=== PATIENT | female | born 1945 | race Caucasian/White ===

== ENCOUNTER 2018-08-25 06:48 | Outpatient (CLI) | payer MEDICARE | END 2018-08-25 23:59 | disposition home or self-care (01) | LOC: CFH 06:48 | PROVIDERS: ATTEND Nurse Practitioner | DX: R20.9 Unspecified disturbances of skin sensation (principal); Z82.49 Family history of ischemic heart disease and other diseases of the circulatory system | CPT/HCPCS: 76706 ==

== ENCOUNTER 2018-09-19 07:35 | Outpatient (CLI) | payer MEDICARE | END 2018-09-19 23:59 | disposition home or self-care (01) | LOC: CFH 07:35 | PROVIDERS: ATTEND Family Medicine | DX: N63.22 Unspecified lump in the left breast, upper inner quadrant (principal) | CPT/HCPCS: 76641; 77065; G0279; 77063 ==

== ENCOUNTER 2019-02-01 18:19 | Observation (INO) | payer MEDICARE ==
[~2019-02-01] VITALS: Ht 170.2 cm; Wt 85.3 kg
[2019-02-02 06:43] VITALS: BP 131/73
== END 2019-02-02 12:04 | disposition home or self-care (01) ==
LOC: ED 20:30 → INTOOBSV 20:35 → EDIP 20:35 → 5SO 21:11 → DCLOUNGE 02-02 11:53
PROVIDERS: ADMIT Family Medicine; ATTEND Family Medicine
DX: I48.92 Unspecified atrial flutter (principal); N17.0 Acute kidney failure with tubular necrosis; D68.59 Other primary thrombophilia; E03.9 Hypothyroidism, unspecified; E78.5 Hyperlipidemia, unspecified; G47.00 Insomnia, unspecified; F10.10 Alcohol abuse, uncomplicated; R79.89 Other specified abnormal findings of blood chemistry; Z79.01 Long term (current) use of anticoagulants; Z87.891 Personal history of nicotine dependence; Z66 Do not resuscitate; Z88.2 Allergy status to sulfonamides; Z91.010 Allergy to peanuts; Z79.82 Long term (current) use of aspirin
CPT/HCPCS: 36415; 71045; 80053; 83735; 83880; 84100; 84443; 84484; 85025; 85610; 92960; 93005; 96361; 96374; 99291; G0378; J7030

== ENCOUNTER 2019-05-07 07:42 | Outpatient (CLI) | payer MEDICARE ==
[~2019-05-07 07:42] MED LIST: ASCO500T8 PO; ASPI-515 PO; CALC-55 PO; CALC200T3 PO; GLUC1CAP13 PO; LEVO25TA4 PO; MULT-516 PO; OMEG1CAP24 PO; PRAV20TA2 PO; RIVA10TA2 PO
== END 2019-05-07 23:59 | disposition home or self-care (01) ==
LOC: CFH 07:42
PROVIDERS: ATTEND Internal Medicine Cardiovascular Disease
DX: I08.3 Combined rheumatic disorders of mitral, aortic and tricuspid valves (principal); I21.19 ST elevation (STEMI) myocardial infarction involving other coronary artery of inferior wall; I21.29 ST elevation (STEMI) myocardial infarction involving other sites; E78.5 Hyperlipidemia, unspecified; Z82.3 Family history of stroke; Z88.2 Allergy status to sulfonamides; Z91.010 Allergy to peanuts; Z82.49 Family history of ischemic heart disease and other diseases of the circulatory system
CPT/HCPCS: 78452; 93017; 93306; A9502

== ENCOUNTER 2019-05-24 07:56 | Day surgery (SDC) | payer MEDICARE ==
[~2019-05-24] VITALS: Ht 170.2 cm; Wt 87.0 kg
[2019-05-24] MEDS ORDERED: DIPHENHYDRAMINE 50 MG/ML, 1ML IVPush ONE (08:30)
[2019-05-24] MEDS ORDERED: POLY17PO5 PO (08:34)
[2019-05-24] MEDS ORDERED: LORA-445 PO (08:34)
[2019-05-24] MEDS ORDERED: FURO-93 PO (08:34)
[2019-05-24] MEDS ORDERED: PLEASE ENTER HEIGHT AND WEIGHT MC SCH (09:00)
[2019-05-24] MEDS ORDERED: DIPHENHYDRAMINE 50 MG/ML, 1ML ONE (09:02)
[2019-05-24] MEDS ORDERED: FENTANYL PF 100 MCG/2ML ONE (09:41)
[2019-05-24] MEDS ORDERED: MIDAZOLAM 1 MG/ML, 2ML ONE ×2 (09:41→10:33)
[2019-05-24] MEDS ORDERED: VERAPAMIL 2.5 MG/ML, 2ML ONE (09:42)
[2019-05-24] MEDS ORDERED: HEPARIN 1,000 UNITS/ML, 10ML ONE (09:42)
[2019-05-24] MEDS ORDERED: LIDOCAINE-MPF 1%, 5ML ONE (09:42)
[2019-05-24] MEDS ORDERED: NITROGLYCERIN 5 MG/ML, 10ML ONE (09:42)
[2019-05-24] MEDS ORDERED: SODIUM CHLORIDE 0.9% 1,000 ML IV SCH (10:57)
== END 2019-05-24 12:20 | disposition home or self-care (01) ==
LOC: CACL 07:56
PROVIDERS: ATTEND Internal Medicine Cardiovascular Disease
DX: R94.39 Abnormal result of other cardiovascular function study (principal); I48.92 Unspecified atrial flutter; E78.2 Mixed hyperlipidemia; E66.3 Overweight; Z68.30 Body mass index [BMI] 30.0-30.9, adult; Z79.82 Long term (current) use of aspirin; Z79.890 Hormone replacement therapy; Z79.1 Long term (current) use of non-steroidal anti-inflammatories (NSAID); Z79.899 Other long term (current) drug therapy; Z88.2 Allergy status to sulfonamides; Z91.010 Allergy to peanuts
CPT/HCPCS: 93458; 99156; C1769; C1894; J1200; J1644; J2250; J3010; Q9967

== ENCOUNTER 2019-05-26 07:20 | Emergency (ER) | payer MEDICARE ==
[~2019-05-26] VITALS: Ht 170.2 cm; Wt 87.9 kg
[~2019-05-26 07:20] MED LIST changes: +FURO-93 PO; +LORA-445 PO; +POLY17PO5 PO
[2019-05-26] MEDS ORDERED: FAMOTIDINE 20 MG/2 ML IV ONE (08:00)
[2019-05-26] MEDS ORDERED: ONDANSETRON 2MG/ML, 2ML IVPush ONE (08:00)
[2019-05-26] MEDS ORDERED: SODIUM CHLORIDE FLUSH 10ML SYR IVF ONE (08:00)
[2019-05-26] MEDS ORDERED: ONDANSETRON 2MG/ML, 2ML ONE (08:04)
[2019-05-26] MEDS ORDERED: FAMOTIDINE 20 MG/2 ML ONE (08:04)
[2019-05-26 08:38] LABS: BASOPHILS # (AUTO) 0.03 x10^3/uL (0-0.1); BASOPHILS % (AUTO) 0 % (0-1); EOSINOPHILS % (AUTO) 0 % (1-7); LYMPHOCYTES # (AUTO) 1.01 x10^3/uL (1-3.4); LYMPHOCYTES % (AUTO) 12 % (22-44); MD NO; MEAN CORPUSCULAR HEMOGLOBIN 29.6 pg (27.0-34.8); MEAN CORPUSCULAR HGB CONC 33.3 g/dL (32.4-35.8); MEAN PLATELET VOLUME 7.1 fL (7.4-10.4); MONOCYTES # (AUTO) 0.29 x10^3/uL (0.2-0.8); MONOCYTES % (AUTO) 4 % (2-9); NEUTROPHILS # (AUTO) 6.82 x10^3/uL (1.8-6.8); NEUTROPHILS % (AUTO) 84 % (42-75); PLATELET COUNT 231 x10^3/uL (130-400); RED CELL DISTRIBUTION WIDTH 13.2 % (9.6-15.2)
[2019-05-26 08:44] LABS: INTERNATIONAL NORMALIZED RATIO 0.93 (0.93-1.1); PROTHROMBIN TIME 9.8 Seconds (9.6-11.5)
[2019-05-26 08:46] LABS: ALANINE AMINOTRANSFERASE 22 U/L (12-78); ANION GAP 7 mmol/L (5-15); CALCIUM 9.5 mg/dL (8.5-10.1); CHLORIDE 107 mmol/L (98-107); CREATININE 0.96 mg/dL (0.55-1.02)
[2019-05-26 08:49] LABS: ALKALINE PHOSPHATASE 68 U/L (45-117); BILIRUBIN,TOTAL 0.6 mg/dL (0.2-1.0); TOTAL PROTEIN 7.8 g/dL (6.4-8.2)
[2019-05-26 10:12] VITALS: BP 162/63
--- NOTE | 2019-05-26 10:25 | NUR ---
Patient given discharge instructions and they have confirmed that they understand the instructions. Patient ambulatory with steady gait. Pt left with d/c paperwork, prescription, and all personal belongings. NADN. No needs expressed at this time.
== END 2019-05-26 10:28 | disposition home or self-care (01) ==
LOC: ED 09:25
DX: K80.70 Calculus of gallbladder and bile duct without cholecystitis without obstruction (principal); E78.5 Hyperlipidemia, unspecified; E03.9 Hypothyroidism, unspecified; Z87.891 Personal history of nicotine dependence; Z88.2 Allergy status to sulfonamides
CPT/HCPCS: 36415; 76700; 80053; 83690; 85025; 85610; 93005; 96374; 96375; 99284; J2405; J3490

== ENCOUNTER → 2019-07-12 | Outpatient (CLI) | payer MEDICARE | END | disposition home or self-care (01) | LOC: CFH 07:33 | PROVIDERS: ATTEND Family Medicine | DX: Z12.31 Encounter for screening mammogram for malignant neoplasm of breast (principal); N64.89 Other specified disorders of breast; M85.88 Other specified disorders of bone density and structure, other site | CPT/HCPCS: 77063; 77067; 77080 ==

== ENCOUNTER 2020-07-14 09:49 | Emergency (ER) | payer MEDICARE ==
[~2020-07-14] VITALS: Ht 167.6 cm; Wt 93.9 kg
--- NOTE | 2020-07-14 10:20 | NUR ---
Pt placed on bedside monitor, furniture installer completed and awaiting MD.
[2020-07-14] MEDS ORDERED: SODIUM CHLORIDE FLUSH 10ML SYR IVF ONE (10:30)
--- NOTE | 2020-07-14 10:30 | NUR ---
MD assessment completed and pt provided instructions for proper clean catch UA sample. Assisted off monitor and to in-room bathroom with UA sample provided.
--- NOTE | 2020-07-14 10:40 | NUR ---
IV started and labs drawn. UA sample placed in vacu-tubes and all samples labled and sent to lab via tube system. Call light in reach and pt aware of plan.
--- NOTE | 2020-07-14 11:00 | NUR ---
US at bedside for exam at this time.
[2020-07-14 11:01] LABS: BASOPHILS % (AUTO) 0 % (0-1); EOSINOPHILS % (AUTO) 0 % (1-7); LYMPHOCYTES % (AUTO) 11 % (22-44); MEAN CORPUSCULAR HEMOGLOBIN 30.1 pg (27.0-34.8); MEAN CORPUSCULAR HGB CONC 34.1 g/dL (32.4-35.8); MEAN PLATELET VOLUME 7.1 fL (7.4-10.4); MONOCYTES % (AUTO) 9 % (2-9); NEUTROPHILS % (AUTO) 79 % (42-75); PLATELET COUNT 231 x10^3/uL (130-400); RED BLOOD COUNT 4.86 x10^6/uL (3.82-5.3); RED CELL DISTRIBUTION WIDTH 13.6 % (9.6-15.2)
[2020-07-14 11:05] LABS: MD NO
[2020-07-14 11:10] LABS: MICROSCOPIC INDICATED
[2020-07-14 11:11] LABS: ALANINE AMINOTRANSFERASE 25 U/L (12-78); ALBUMIN 3.6 g/dL (3.4-5.0); ANION GAP 5 mmol/L (5-15); CALCIUM 9.2 mg/dL (8.5-10.1); CHLORIDE 101 mmol/L (98-107); CREATININE 0.98 mg/dL (0.55-1.02)
[2020-07-14 11:13] LABS: ALKALINE PHOSPHATASE 77 U/L (45-117); BILIRUBIN,TOTAL 1.1 mg/dL (0.2-1.0); TOTAL PROTEIN 7.5 g/dL (6.4-8.2)
[2020-07-14] MEDS ORDERED: ACETAMINOPHEN 325 MG TABLET ONE (11:39)
--- NOTE | 2020-07-14 11:45 | NUR ---
Tylenol 650mg PO given for LAWSON. Unable to scan medication as it shows d/c'd after one use secondary to showing up from removal from [facility].
--- NOTE | 2020-07-14 12:06 | NUR ---
Surgery personnel present for Covid test prior to going to OR.
[2020-07-14] MEDS ORDERED: SODIUM CHLORIDE 0.9% 1,000 ML IV ONE ×2 (12:30→13:00)
[2020-07-14] MEDS ORDERED: CEFOTETAN PMX 1GM/50ML 50 ML IVPB ONE (12:30)
--- NOTE | 2020-07-14 12:43 | NUR ---
VS reassessed and IVF started via pump with abx as IVPB via pump as well. IV site noted to be benign with fluids running without issue.
[2020-07-14] MEDS ORDERED: ONDANSETRON 2MG/ML, 2ML IVPush PRN ×2 (13:00→18:00)
[2020-07-14] MEDS ORDERED: MORPHINE SULFATE 4 MG/ML, 1ML IVPush PRN (13:00)
[2020-07-14] MEDS ORDERED: SODIUM CHLORIDE FLUSH 10ML SYR IVF PRN (13:00)
[2020-07-14] MEDS ORDERED: CHLORHEXIDINE 15 ML UDC MM ONE (15:00)
--- NOTE | 2020-07-14 15:00 | NUR ---
Report given to EDILSON Melendez and care transferred.
--- NOTE | 2020-07-14 15:09 | NUR ---
EDILSON Huerta from pre-op given report and EDILSON Melendez aware of needed consent and other pre-op paperwork.
[2020-07-14] MEDS ORDERED: INDOCYANINE GREEN 25 MG VIAL ONE (15:17)
--- NOTE | 2020-07-14 15:19 | NUR ---
Pt being transported to OR
[2020-07-14] MEDS ORDERED: INDOCYANINE GREEN 25 MG VIAL IV ONE (15:30)
[2020-07-14 15:55] VITALS: BP 104/61
[2020-07-14] MEDS ORDERED: FENTANYL PF 100 MCG/2ML ONE (15:55)
[2020-07-14] MEDS ORDERED: BUPIVACAINE/PF 0.5% ONE (16:12)
[2020-07-14] MEDS ORDERED: EPINEPHRINE 1 MG/ML, 1ML ONE (16:12)
[2020-07-14] MEDS ORDERED: DEXAMETHASONE 4 MG/ML, 1ML ONE (16:32)
[2020-07-14] MEDS ORDERED: PROPOFOL 10 MG/ML, 20ML ONE (16:32)
[2020-07-14] MEDS ORDERED: SUCCINYLCHOLINE 20 MG/ML, 10ML ONE (16:32)
[2020-07-14] MEDS ORDERED: NEOSTIGMINE 1 MG/ML, 10ML ONE (16:32)
[2020-07-14] MEDS ORDERED: GLYCOPYRROLATE 0.2MG/1ML, 5ML ONE (16:32)
[2020-07-14] MEDS ORDERED: CEFAZOLIN 1,000 MG ONE (16:32)
[2020-07-14] MEDS ORDERED: KETOROLAC 30 MG/1 ML ONE (16:32)
[2020-07-14] MEDS ORDERED: ROCURONIUM 10 MG/ML,10ML ONE (16:32)
[2020-07-14] MEDS ORDERED: ONDANSETRON 2MG/ML, 2ML ONE (16:32)
[2020-07-14] MEDS ORDERED: FENTANYL PF 250 MCG/5ML ONE (17:09)
[2020-07-14] MEDS ORDERED: LABETALOL 5MG/ML, 20ML IV PRN (18:00)
[2020-07-14] MEDS ORDERED: FENTANYL PF 100 MCG/2ML IV PRN (18:00)
[2020-07-14] MEDS ORDERED: METHOCARBAMOL 1,000 MG in DEXTROSE 5% 100 ML IV PRN (18:00)
[2020-07-14] MEDS ORDERED: hydrALAzine 20 MG/ML, 1ML IV PRN (18:00)
[2020-07-14] MEDS ORDERED: HALOPERIDOL 5 MG/ML IV PRN (18:00)
[2020-07-14] MEDS ORDERED: HYDROmorphone 1 MG/ML, 1ML INJ IVPush PRN (18:00)
[2020-07-14] MEDS ORDERED: LORazepam 2 MG/ML, 1ML IVPush PRN (18:00)
[2020-07-14] MEDS ORDERED: MEPERIDINE/PF 25MG/0.5ML IVPush PRN (18:00)
[2020-07-14] MEDS ORDERED: PROMETHAZINE 25 MG/ML, 1ML IVPush PRN (18:00)
[2020-07-14] MEDS ORDERED: ACETAMINOPHEN 325 MG TABLET PO PRN (18:00)
[2020-07-14] MEDS ORDERED: OXYcodone 5 MG/5 ML ORAL.SOL UDC PO PRN (18:00)
[2020-07-14] MEDS ORDERED: EPHEDRINE 50 MG/ML, 1ML IVPush PRN (18:00)
== END 2020-07-14 19:30 | disposition home or self-care (01) ==
LOC: ED 12:19 → EDIP 12:54 → UNDOADMIN 12:54
DX: K80.00 Calculus of gallbladder with acute cholecystitis without obstruction (principal); Z20.822 Contact with and (suspected) exposure to COVID-19; R11.0 Nausea; R10.11 Right upper quadrant pain
CPT/HCPCS: 36415; 47562; 76700; 80053; 81001; 83690; 85025; 87635; 88304; 93005; 96365; 96375; 99152; 99285; J0171; J0330; J0690; J1100; J1885; J2405; J2704; J2710; J3010; J7030; S0020; 96374; 99153

== ENCOUNTER → 2020-12-31 | Outpatient (CLI) | payer MEDICARE ==
[~2020-12-31] MED LIST changes: -ASPI-515 PO; +ASPI-963 PO
== END | disposition home or self-care (01) ==
LOC: CFH 07:34
PROVIDERS: ATTEND Family Medicine
DX: Z12.31 Encounter for screening mammogram for malignant neoplasm of breast (principal)
CPT/HCPCS: 77063; 77067